=== PATIENT | female | born 2005 | race Caucasian/White ===

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

== ENCOUNTER 2023-06-11 10:16 | Day surgery (SDC) | payer OTHER ==
[~2023-06-11] VITALS: Ht 172.7 cm; Wt 58.5 kg
[~2023-06-11 10:16] MED LIST changes: +CeFAZolin Sodium 2,000 MG VIAL ONE; +Lactated Ringer's 1,000 ML IV ONE; +Ropivacaine 0.5% HCl/Pf 5 MG/ML 20ML VIAL ONE
[2023-06-11] MEDS ORDERED: FentaNYL Citrate 50 MCG/ML 2 ML Injection ONE ×3 (10:21→13:02)
[2023-06-11] MEDS ORDERED: Midazolam HCl 1MG / ML 2ML Vial ONE (10:21)
[2023-06-11] MEDS ORDERED: Lactated Ringer's 1,000 ML IV ONE (11:18)
--- NOTE | 2023-06-11 12:20 | NUR ---
06/11/[address] ENTERED CASE AT 1207 REQUESTED BY FOR EVAL, SCRUBBED IN AND LEFT SURGERY AT 1217
[2023-06-11 13:08] VITALS: BP 107/52
== END 2023-06-11 13:24 | disposition home or self-care (01) ==
LOC: ORSCSDS 10:16
PROVIDERS: Orthopaedic Surgery
PROC: 0JBG0ZX Excision of Right Lower Arm Subcutaneous Tissue and Fascia, Open Approach, Diagnostic (ICD-10-PCS; principal; 2023-06-11 11:30)
DX: M67.431 Ganglion, right wrist (principal); F41.9 Anxiety disorder, unspecified; F17.290 Nicotine dependence, other tobacco product, uncomplicated; F32.A Depression, unspecified
CPT/HCPCS: 88304; J0690; J2250; J2795; J3010; J7120